=== PATIENT | male | born 1995 | race Caucasian/White ===

== ENCOUNTER → 2024-10-13 09:56 | Outpatient (BNVA) | payer OTHER, SELFPAY | PROVIDERS: Family Provider Nurse Practitioner; PCP Family Medicine; Visit Provider Physician Assistant | DX: M71.341 Other bursal cyst, right hand (principal) | CPT/HCPCS: 73130 ==

== ENCOUNTER 2024-12-31 03:43 | Emergency (ER) | payer SELFPAY ==
[2024-12-31 03:58] VITALS: BP 127/80; PULSE 75; RESP 18; TEMP 36.6; O2SAT 100; BMI 29.2
--- NOTE | 2024-12-31 06:01 | W.ED.ALLEREA ---
HPI - Allergic Reaction General: Chief complaint: Allergic Reaction Stated complaint: Knot on Chin\Hives Time Seen by Provider: 12/31/24 05:50 Source: patient Mode of arrival: ambulatory Limitations: no limitations History of Present Illness: HPI narrative: 29-year-old male states over the last 3 days has been having urticaria to his trunk and arms with some slight lip swelling with pruritus. He denies any throat swelling denies any shortness of breath. No known allergic reactions in the past denies any shortness of breath. Associated symptoms: Deny abdominal pain, nausea or vomiting Related Data Previous Rx's ?Medication ?Instructions ?Recorded prednisone 50 mg tablet 50 mg PO DAILY #5 tabs 12/31/24 Allergies Allergy/AdvReac Type Severity Reaction Status Date / Time No Known Allergies Allergy Verified 10/13/24 10:01 Review of Systems Const: Denies: fever(s), chills, body aches or change in appetite ENMT: Denies: throat pain or dental pain Card: Denies: chest pain Resp: Denies: dyspnea GI: Denies: abdominal pain, nausea, vomiting or diarrhea Musc: Denies: neck pain or back pain Skin/Breast: Denies: rash Neuro: Denies: headache(s) All/Imm: Reports: urticaria PFS ED PFSH: Social History Smoking and tobacco/nicotine status: never used tobacco/nicotine Physical Exam Const: COMMON NORMALS: no acute distress, patient oriented x3 and healthy appearing HENMT: COMMON NORMALS: normocephalic and atraumatic HEAD & SCALP: normocephalic and atraumatic OTHER: No lip or throat swelling at this time Neck/C-Spine: COMMON NORMALS: full ROM and supple Chest: COMMONS NORMALS: normal inspection of the chest Resp: COMMON NORMALS: normal respiratory effort Cardio: COMMON NORMALS: regular rate, regular rhythm and No murmurs present (Cardio) RATE: regular rate RHYTHM: regular rhythm Extremity: COMMON NORMALS: normal to inspection and full ROM Neuro: COMMON NORMALS: patient oriented x3, moves all extremities and no focal motor deficits Psych: COMMON NORMALS: mental status grossly normal, Normal thought process present and cooperative THOUGHT PROCESS: Normal thought process present Skin: NARRATIVE SKIN EXAM: Urticaria to trunk and arms Course Vital Signs: Vital signs: Vital Signs Temperature 98 F 12/31/24 03:58 Pulse Rate 75 12/31/24 03:58 Respiratory Rate 18 12/31/24 03:58 Blood Pressure 127/80 12/31/24 03:58 Pulse Oximetry 100 12/31/24 03:58 MDM - Allergic Reaction Medical Decision Making Patient presents. Urticaria is no throat involvement no shortness of breath no wheezing we will start him on steroids he is follow-up his PCP return if worsening. No radiology studies performed this visit Discharge Plan Discharge Patient Disposition: Home Clinical Impression: Urticaria Condition: Stable Prescriptions: New prednisone 50 mg tablet 50 mg PO DAILY Qty: 5 0RF Discharge Orders: Discharge ED (Routine); Ordered 12/31/24 Ordered By: Avni Rider Discharge Diet: Advance as tolerated Discharge Activity: Resume usual activity Patient Instructions: Urticaria (ED) Print Language: Guinean Coding Level of Care Code ED Hydropress Operator for Gale Juárez
[2024-12-31] MEDS: famotidine 20 mg Tablet 40 MG PO (06:28)
[2024-12-31] MEDS: diphenhydrAMINE 50 mg Capsule PO (06:28)
[2024-12-31] MEDS: predniSONE 20 mg Tablet 60 MG PO (06:29)
[2024-12-31 06:57] VITALS: PULSE 94; O2SAT 97
== END 2024-12-31 07:07 | disposition home or self-care (01) ==
PROVIDERS: Emergency Provider Emergency Medicine
DX: L50.9 Urticaria, unspecified (principal)
CPT/HCPCS: 99283; J7512; J9999; Q0163